=== PATIENT | male | born 1940 | race Caucasian/White ===

== ENCOUNTER → 2024-11-28 | Outpatient (CLI) | payer MEDICARE, BC, SELFPAY ==
[2024-11-28 08:48] LABS: Basophils % (Auto) 1 % (0-2.5); Eosinophils # (Auto) 0.3 Thou/mm3 (0.0-0.5); Eosinophils % (Auto) 5 % (0-10); Hemoglobin 15.2 g/dL (13.5-16.0); Immature Granulocytes % (Auto) 0 % (0-0); Immature Granulocytes Auto 0.01 Thou/mm3 (0.00-0.00); Lymphocytes # (Auto) 1.4 Thou/mm3 (1.0-4.8); Lymphocytes % (Auto) 27 % (10-50); Mean Corpuscular HGB Conc 33.8 g/dl (31.0-37.0); Mean Corpuscular Hemoglobin 29.1 pg (25.0-35.0); Mean Corpuscular Volume 86 fL (80-100); Monocytes # (Auto) 0.4 Thou/mm3 (0.0-0.8); Monocytes % (Auto) 8 % (0-12); Neutrophils # (Auto) 3.1 Thou/mm3 (1.8-7.7); Neutrophils % (Auto) 58 % (37-80); Nucleated Red Blood Cell % 0 /100 WBC (0); Platelet Count 190 Thou/mm3 (140-440); RDW Standard Deviation 40.7 fL (35.1-43.9); Red Blood Count 5.23 Miln/mm3 (4.50-5.90); White Blood Count 5.3 Thou/mm3 (3.8-10.6)
[2024-11-28 09:01] LABS: Prostate Specific Antigen 2.37 ng/mL (0-4.00); T4 (Thyroxine) 6.5 mcg/dL (4.5-10.9)
[2024-11-28 09:13] LABS: Alanine Aminotransferase < 7 U/L (10-49); Albumin, Serum 4.2 gm/dL (3.4-4.8); Albumin/Globulin Ratio 1.4 (1.2-2.2); Alkaline Phosphatase 123 U/L (46-116); Anion Gap 7 (7-16); Aspartate Amino Transferase 18 U/L (0-34); BUN/Creatinine Ratio 14 Ratio (12-20); Bilirubin,Total 1.4 mg/dL (0.3-1.2); Blood Urea Nitrogen 19 mg/dL (9-23); Calcium 9.5 mg/dL (8.3-10.6); Calcium (Corrected) 9.5 mg/dL (8.5-10.1); Carbon Dioxide 27.8 mMol/L (20.0-31.0); Cardiac Risk Estimate 3.7 RATIO (4.0-6.7); Chloride 105 mMol/L (98-107); Cholesterol 153 mg/dL (132-200); Creatinine (Component) 1.4 mg/dL (0.6-1.3); Glucose 123 mg/dL (74-106); HDL Cholesterol 41 mg/dL (40-60); LDL Cholesterol,Calculated 98 mg/dL (0-130); Osmolality,Calculated 282 (275-295); Potassium 4.5 mMol/L (3.4-5.1); Sodium 140 mMol/L (136-145); Thyroid Stimulating Hormone 1.53 uIU/mL (0.55-4.78); Total Protein 7.2 gm/dL (5.7-8.2); Triglycerides 71 mg/dL (30-150); eGFR 50 See Note
== END | disposition home or self-care (01) ==
LOC: COPL 07:20
PROVIDERS: PCP Family Medicine; Referring Provider Family Medicine; Visit Provider Family Medicine
DX: R79.9 Abnormal finding of blood chemistry, unspecified (principal)
CPT/HCPCS: 36415; 80053; 80061; 84153; 84436; 84443; 85025

== ENCOUNTER → 2025-02-11 | Outpatient (CLI) | payer MEDICARE, BC, SELFPAY ==
[2025-02-11 12:12] LABS: Alanine Aminotransferase 12 U/L (10-49); Albumin, Serum 4.3 gm/dL (3.4-4.8); Albumin/Globulin Ratio 1.3 (1.2-2.2); Alkaline Phosphatase 117 U/L (46-116); Anion Gap 8 (7-16); Aspartate Amino Transferase 20 U/L (0-34); BUN/Creatinine Ratio 13 Ratio (12-20); Bilirubin,Total 1.7 mg/dL (0.3-1.2); Blood Urea Nitrogen 18 mg/dL (9-23); Calcium 8.8 mg/dL (8.3-10.6); Calcium (Corrected) 8.8 mg/dL (8.5-10.1); Carbon Dioxide 24.9 mMol/L (20.0-31.0); Chloride 105 mMol/L (98-107); Creatinine (Component) 1.4 mg/dL (0.6-1.3); Globulin 3.3 gm/dL (2.3-3.5); Glucose 116 mg/dL (74-106); Osmolality,Calculated 278 (275-295); Potassium 4.2 mMol/L (3.4-5.1); Sodium 138 mMol/L (136-145); Total Protein 7.6 gm/dL (5.7-8.2); eGFR 50 See Note
== END | disposition home or self-care (01) ==
LOC: COPL 11:33
PROVIDERS: PCP Family Medicine; Referring Provider Student in an Organized Health Care Education/Training Program; Visit Provider Student in an Organized Health Care Education/Training Program
DX: I71.40 Abdominal aortic aneurysm, without rupture, unspecified (principal); N18.1 Chronic kidney disease, stage 1
CPT/HCPCS: 36415; 80053

== ENCOUNTER → 2025-02-12 | Outpatient (CLI) | payer MEDICARE, BC, SELFPAY ==
--- NOTE | 2025-02-12 16:05 | XR_ITS ---
Examination: PA lateral chest 2 views TECHNIQUE: Upright PA and lateral chest 2 views Date and time: February 12, 2025 1715 hours INDICATIONS: History solitary pulmonary nodule, 4 mm nodule in the lingular segment on CT chest December 19, 2023 FINDINGS: Normal heart size No mediastinal lymphadenopathy. No pulmonary nodules. Moderate hyperexpansion IMPRESSION: No pulmonary nodules
--- NOTE | 2025-02-12 16:08 | XR_ITS ---
Examination: CTA abdomen, with intravenous contrast. CTA pelvis, with intravenous contrast. 2-D sagittal and coronal reconstructions. 3-D reconstructions. Date and time of exam: February 12, 2025 1718 hours INDICATIONS: History abdominal aortic aneurysm AP dimension 4.4 cm mediolateral dimension 5.3 cm on cc study December 03, 2023 CTDI vol (mgy) 7.3 DLP (MGycm) 445 Technique: Multiple CTA images, 2.0 mm slice thickness, obtained , abdomen, pelvis, with the high-resolution 64 slice scanner. 100 cc Isovue-370 is administered intravenously. Sagittal and coronal 2-D reconstructions are obtained. 3-D reconstructions, angiographic images are obtained. 3-D postprocessing, including vascular maximum intensity projections. Low dose protocols were performed. One or more of the following dose reduction techniques were used; automated exposure control, adjustment of the mA and/or KV according to patient size, use of iterative reconstruction technique. Findings: No focal liver or splenic lesions No gallstones No pancreatic mass Numerous bilateral renal calculi, the largest right kidney 14 mm largest left kidney 10 mm Bilateral renal cysts Aorto iliac patent stent, AP dimension infrarenal aorta 3.4 cm, mediolateral dimension 3.5 cm No bowel obstruction Colonic diverticulosis Mild thickening of the urinary bladder Moderate prostatomegaly IMPRESSION: Numerous bilateral nonobstructing renal calculi Aortoiliac patent stent with smaller infrarenal abdominal aorta aneurysmal dilatation, AP dimension 3.4 cm mediolateral dimension 3.5 cm
--- NOTE | 2025-02-12 16:50 | XR_ITS ---
Examination: CT chest, without intravenous contrast. Sagittal and coronal 2-D reconstructions. Exam date and time: February 12, 2025 1715 hours INDICATIONS: CT chest December 19, 2023 lingular segment upper lobe nodule 4 mm CTDI:vol (mGy) 9 46 DLP: (mGycm) 361 Technique: Multiple 3.0 mm axial sections of the chest to been obtained. Bone and lung density settings are obtained. Sagittal and coronal 2-D reconstructions have been obtained. Low dose protocols were performed. One or more of the following dose reduction techniques were used; automated exposure control, adjustment of the mA and/or KV according to patient size, use of iterative reconstruction technique. Findings: AP dimension ascending thoracic aorta 3.9 cm Pulmonary artery segments not enlarged No paratracheal tracheobronchial or bronchopulmonary adenopathy 4 mm subpleural pulmonary nodule right upper lobe image 129 5 mm pulmonary nodule right upper lobe axial image 170 4 mm pulmonary nodule lingular segment image 177 4 mm pulmonary nodule right upper lobe image 201 3 mm pulmonary nodule right upper lobe image 217 6 mm pulmonary nodule lingular segment image 219 11 mm pulmonary nodule right mid lung image 223 No lobar pneumonia or pulmonary edema No visualized liver or splenic lesion 3 mm right renal calculus IMPRESSION: Interval multiple pulmonary nodules as above, recommend continued 3-6 month follow-up CT chest without contrast
== END | disposition home or self-care (01) ==
LOC: SCAT 15:51
PROVIDERS: PCP Family Medicine; Referring Provider Family Medicine; Visit Provider Family Medicine
DX: R91.8 Other nonspecific abnormal finding of lung field (principal); N20.0 Calculus of kidney; I71.43 Infrarenal abdominal aortic aneurysm, without rupture
CPT/HCPCS: 71046; 71250; 74174; A4649; Q9967

== ENCOUNTER → 2025-08-06 | Outpatient (CLI) | payer MEDICARE, BC, SELFPAY ==
--- NOTE | 2025-08-06 11:30 | XR_ITS ---
Examination: CT chest, without intravenous contrast. Sagittal and coronal 2-D reconstructions. Exam date and time: 08/06/2025, 11:11 a.m. INDICATION: 6-month follow-up for lung nodule COMPARISON: Chest CT 02/12/2025 CTDI:vol (mGy) 10 DLP: (mGycm) 389 Technique: Multiple 3.0 mm axial sections of the chest to been obtained. Bone and lung density settings are obtained. Sagittal and coronal 2-D reconstructions have been obtained. Low dose protocols were performed. One or more of the following dose reduction techniques were used; automated exposure control, adjustment of the mA and/or KV according to patient size, use of iterative reconstruction technique. Findings: Redemonstration of scattered very small peripheral small airways micronodules and foci of endobronchial mucoid impaction in both lungs as previously seen and described, and either stable or regressed in the interim. The dominant subpleural/perifissural nodule in the anterior aspect of the right lower lobe is stable at 7 mm (axial image 210). In the subpleural aspect of the lateral segment right middle lobe, there is mildly progressive density/nodularity that probably represents peripheral endobronchial mucoid impaction in the region of mild subpleural scarring and bronchiolectasis, with the aggregate to density there measuring approximately 10 mm in length (axial image 214). New small ovoid density measuring 5 mm AP and is located in the anterior inferior right upper lobe near the minor fissure (axial image 166). Redemonstration of chronic atelectasis/scarring in the anteromedial portions of the right middle lobe and lingula, with bronchiectasis in the right middle lobe predominant. Additional similar regions of subpleural scarring/traction bronchiectasis and endobronchial mucoid impaction are identified in the anterior inferior portions of the right upper lobe and left upper lobe. Very mild biapical subpleural fibrotic changes are identified. No lung mass. No acute consolidative segmental or lobar airspace disease. No pleural effusion or pneumothorax. Mild aneurysmal dilatation of the ascending aorta measures 4 cm in caliber. Scattered calcific plaque identified in the aorta and coronary arteries, the dominant in the proximal LAD. No pericardial effusion or cardiomegaly. No mediastinal or hilar adenopathy. There are multiple small calcified bilobed mediastinal lymph nodes and hilar lymph nodes that may represent sequela of chronic healed granulomatous disease process. Limited views of the upper abdomen show right-sided nephrolithiasis, with a dominant calculus measuring approximate 12.5 x 6.3 mm in transaxial dimensions. There is redemonstration of chronic right-sided pelvic caliectasis in the [id number]. No adrenal nodules. Partially imaged infrarenal aortic stent is in place. Colonic diverticulosis without evidence for acute diverticulitis in the [id number]. Multifocal degenerative changes with otherwise no evidence for recent fracture or aggressive lesion. Impression: Redemonstration of scattered very small peripheral small airways micronodules and foci of endobronchial mucoid impaction in both lungs as previously seen and described, and either stable or regressed in the interim. The dominant subpleural/perifissural nodule in the anterior aspect of the right lower lobe is stable at 7 mm. In the subpleural aspect of the lateral segment right middle lobe, there is mildly progressive density/nodularity that probably represents peripheral endobronchial mucoid impaction in the region of mild subpleural scarring and bronchiolectasis, with the aggregate to density there measuring approximately 10 mm in length. New small ovoid density measuring 5 mm AP in the anterior inferior right upper lobe near the minor fissure. Ascending aortic aneurysm measuring 4 cm in caliber. Recommendation: Follow-up chest CT in 6 months.
== END | disposition home or self-care (01) ==
LOC: CCTX 10:51
PROVIDERS: PCP Family Medicine; Referring Provider Family Medicine; Visit Provider Family Medicine
DX: R91.8 Other nonspecific abnormal finding of lung field (principal); I71.21 Aneurysm of the ascending aorta, without rupture
CPT/HCPCS: 71250